=== PATIENT | female | born 2000 | race Caucasian/White ===

== ENCOUNTER 2021-04-06 16:30 | Outpatient (RCR) | payer OTHER, SELFPAY ==
--- NOTE | 2021-03-18 16:25 | PTOPEVAL ---
PHYSICAL THERAPY EVALUATION Thank you for referring Velia Ram to [facility].? Velia was evaluated for the dx of cervicothoracic pain. The patient is scheduled to be seen for therapy? 2 x/week for 4 weeks. Please review, sign, date and return this plan of care SAMRA. I agree with and certify that the following plan of care is medically necessary. Referring Physician Date Attending Provider: Ayana Alan *PT Outpatient Evaluation Start: 03/18/21 15:03 Freq: Status: Active Protocol: Document 03/18/21 15:04 MLV (Rec: 03/18/21 15:54 MLV [id number]) Therapy Assessment Status Assessment Status Assessment Status Evaluation Outpatient Past Medical History Past Medical History No Past Medical/Surgical History Patient/Family Denies Significant Past Medical/ Surgical History Evaluation Information Problem Diagnosis neck/upper back and shoulder pain Onset 3-4 yrs Cause possibly due to macromastia Additional Evaluation Detail The patient reports neck and shoulder pain that gets worse when she tries to exercise. The patient has tried multiple types of increased support systems w/o success. 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 The pain is at [place] upper traps/mid traps and goes into her neck when aggravated. The patient's goal is to have more permanent relief of neck/shoulder pain and feels it will be necessary to have a breast reduction to accomplish this goal. Diagnostic Tests X-Rays For This Problem Yes: spine ok Pain Assessment Timing of Pain Assessment Timing of Pain Assessment Assessment Pain Scale Pain Scale Used Numeric (1 - 10) Self Report Pain Assessment Upper Back Reported Pain Level 4 Pain Description Dull,Heavy Pain Frequency Chronic Greatest Pain Intensity 7 Pain Aggravating Factors Exercise/Activity Pain Score Pain Score 4: Self Report Interventions Used Interventions Used By Clinicians Education,Electrical Stimulation,Exercise,Heat Pain Relief Interventions Used By Heat,Ice,Inactivity/Rest, Patient Support of Extremity Other Alleviating Intervent
--- NOTE | 2021-04-11 08:54 | PTOPEVAL ---
PHYSICAL THERAPY DISCHARGE Thank you for referring Velia Ram to [facility].? The patient has completed 8 visits for PT. DC PT with all goals met except for pain level. Please review, sign, date and return this plan of care SAMRA. I agree with and certify that the following plan of care is medically necessary. Referring Physician Date Attending Provider: Ayana Alan *PT Outpatient Discharge Start: 03/18/21 15:03 Freq: Status: Active Protocol: Document 04/11/21 08:47 MLV (Rec: 04/11/21 08:54 MLV [email or web address]) Therapy Assessment Status Assessment Status Assessment Status Discharge Evaluation Information Problem Diagnosis neck/upper back and shoulder pain Cause possibly due to macromastia Additional Evaluation Detail The patient feels she is somewhat better but pain remains- today rated a 3. The patient does not currently have a follow up visit scheduled with MD, but plans to call to set one up. The patient denies difficulty with any of her exercises for HEP. Pain Assessment Timing of Pain Assessment Timing of Pain Assessment Assessment Pain Scale Pain Scale Used Numeric (1 - 10) Self Report Pain Assessment Upper Back Reported Pain Level 3 Pain Description Dull,Heavy Pain Frequency Chronic Pain Score Pain Score 3: Self Report Interventions Used Interventions Used By Clinicians Electrical Stimulation, Exercise,Heat,Manual Therapy Techniques Pain Relief Interventions Used By Exercise,Heat,Inactivity/Rest, Patient Support of Extremity Cervical and Lumbar ROM Cervical ROM Cervical Flexion (0-60) 48 Query Text:Active in Degrees Cervical Extension (0-70) 70 Query Text:Active in Degrees Cervical Lateral Flexion Right (0-50) 45 Query Text:Active in Degrees Cervical Lateral Flexion Left (0-50) 45 Query Text:Active in Degrees Cervical Rotation Right (0-90) 70 Query Text:Active in Degrees Cervical Rotation Left (0-90) 63 Query Text:Active in Degrees Upper Extremity Range of Motion General Upper Extremity Range of Motion Reason Not Measured WNL/Left,WNL/Right Upper Extremity Muscle Strength Testing General Upper Extremity Strength Reason Not Measured WNL/Left,WNL/Right Gross Upper Extremity Strength Comments improved postural control throught tband exercises; patient
== END 2021-04-11 11:51 | disposition home or self-care (01) ==
LOC: ANHPT 16:30
DX: M54.2 Cervicalgia (principal); M25.519 Pain in unspecified shoulder; M54.9 Dorsalgia, unspecified; N62 Hypertrophy of breast
CPT/HCPCS: 97014; 97110; 97140; 97161; G0283